=== PATIENT | male | born 1950 | race Caucasian/White ===

== ENCOUNTER → 2019-11-21 | Outpatient (CLI) | payer MEDICARE, OTHER ==
[2016-01-18 23:02] VITALS: BP 146/79
[~2019-11-21] MED LIST: ADVAIR 250/28 DISKU1 IH; BISOPROLOL FUMA1 TAB PO; SPIRIVA INH IH; ZOFRAN ODT4 MG PO
== END ==
LOC: RAD 08:59
DX: I65.22 Occlusion and stenosis of left carotid artery (principal)

== ENCOUNTER 2020-02-20 12:13 | Emergency (ER) | payer MEDICARE, OTHER ==
[~2020-02-20] VITALS: Ht 172.7 cm; Wt 74.2 kg
[2020-02-20 12:47] LABS: HEMATOCRIT 44.7 % (42.0-52.0); HEMOGLOBIN 14.6 g/dL (13.5-18.0); MEAN CELL VOLUME 88 fl (78-100); MEAN CORPUSCULAR HEMOGLOBIN 29 pg (27-31); MEAN CORPUSCULAR HGB CONC 33 g/dL (33-37); MEAN PLATELET VOLUME 12.5 fl (7.4-10.4); PLATELET COUNT 268 K/mm3 (130-400); RED BLOOD COUNT 5.09 M/mm3 (4.20-5.60); WHITE BLOOD COUNT 10.4 K/mm3 (4.8-10.8)
[2020-02-20 13:00] LABS: ALBUMIN 4.4 g/dL (3.4-4.8); POTASSIUM 3.6 mmol/L (3.5-5.1); SODIUM 137 mmol/L (136-145)
[2020-02-20 13:01] LABS: CALCIUM 9.3 mg/dL (8.3-10.5)
[2020-02-20 13:03] LABS: CARBON DIOXIDE 21 mmol/L (23-31); GLUCOSE 111 mg/dL (75-110); TOTAL PROTEIN 7.7 g/dL (6.2-8.1)
[2020-02-20 13:04] LABS: TOTAL BILIRUBIN 0.7 mg/dL (0.2-1.2)
[2020-02-20 13:07] LABS: AST-SGOT 24 U/L (5-34)
[2020-02-20 13:09] LABS: ALCOHOL IN-HOUSE < 10 mg/dL (<10)
[2020-02-20 13:10] LABS: ALT/SGPT 29 U/L (0-55)
[2020-02-20 13:23] LABS: LYMPHOCYTE 41 % (20-51); MONOCYTE 10 % (3-10); NEUTROPHILS 42 % (42-75)
[2020-02-20 13:35] LABS: TROPONIN-I < 0.03 ng/mL (<0.030)
[2020-02-20 14:14] LABS: D-DIMER 0.99 mg/L FEU (0.15-0.50)
[2020-02-20 14:25] LABS: PARTIAL THROMBOPLASTIN TIME 21.4 SECONDS (21.0-32.0)
[2020-02-20] MEDS ORDERED: CLOPIDOGREL75 M2 PO (15:56)
[2020-02-20] MEDS ORDERED: AMLODIPINE BESYL5 MG PO (15:57)
[2020-02-20] MEDS ORDERED: ATORVASTATIN CA80 MG PO (15:57)
[2020-02-20] MEDS ORDERED: CARVEDILOL3.125 MG PO (15:57)
[2020-02-20] MEDS ORDERED: TRELEGY ELLIPT1 EACH IH (15:57)
[2020-02-20] MEDS ORDERED: FLOMAX0.4 MG PO (15:57)
[2020-02-20] MEDS ORDERED: TOPCARE ASPIRIN81 M1 PO (15:58)
[2020-02-20 18:02] VITALS: BP 133/90
== END 2020-02-20 18:32 | disposition short-term general hospital (02) ==
LOC: ED 12:13
PROVIDERS: Nurse Practitioner Family
DX: I21.4 Non-ST elevation (NSTEMI) myocardial infarction (principal); I48.91 Unspecified atrial fibrillation; I12.9 Hypertensive chronic kidney disease with stage 1 through stage 4 chronic kidney disease, or unspecified chronic kidney disease; N18.9 Chronic kidney disease, unspecified; E78.5 Hyperlipidemia, unspecified; J44.9 Chronic obstructive pulmonary disease, unspecified; Z20.828 Contact with and (suspected) exposure to other viral communicable diseases; Z86.73 Personal history of transient ischemic attack (TIA), and cerebral infarction without residual deficits; Z87.891 Personal history of nicotine dependence; Z79.02 Long term (current) use of antithrombotics/antiplatelets; Z79.82 Long term (current) use of aspirin
CPT/HCPCS: J1650; J7030

== ENCOUNTER 2020-04-02 16:08 | Outpatient (RCR) | payer MEDICARE, OTHER ==
[~2020-04-02 16:08] MED LIST changes: +AMLODIPINE BESYL5 MG PO; +ASPIRIN E.C. 8181 MG PO; +ATORVASTATIN CA80 MG PO; +CARVEDILOL3.125 MG PO; +CLOPIDOGREL75 M2 PO; +FLOMAX0.4 MG PO; +TRELEGY ELLIPT1 EACH IH
== END 2020-07-01 | disposition home or self-care (01) ==
LOC: CARDREHAB
DX: Z48.812 Encounter for surgical aftercare following surgery on the circulatory system (principal); Z95.5 Presence of coronary angioplasty implant and graft; I25.2 Old myocardial infarction; Z87.891 Personal history of nicotine dependence

== ENCOUNTER → 2020-06-01 | Outpatient (CLI) | payer MEDICARE, OTHER | LOC: LAB 12:01 | DX: Z01.812 Encounter for preprocedural laboratory examination (principal); Z20.822 Contact with and (suspected) exposure to COVID-19 ==

== ENCOUNTER 2020-09-11 16:28 | Emergency (ER) | payer MEDICARE, OTHER ==
[2020-09-11 17:45] LABS: BASO # 0.09 (0.02-0.10); EOS # 0.97 (0.04-0.40); EOS % 12.3 % (0.0-4.0); HEMATOCRIT 40.4 % (42.0-52.0); HEMOGLOBIN 12.7 g/dL (13.5-18.0); LYMPH# 2.21 (1.50-4.00); MEAN CELL VOLUME 94 fl (78-100); MEAN CORPUSCULAR HEMOGLOBIN 30 pg (27-31); MEAN CORPUSCULAR HGB CONC 31 g/dL (33-37); MEAN PLATELET VOLUME 12.1 fl (7.4-10.4); MONO # 1.04 (0.20-0.80); NEU # 3.56 (1.40-6.50); PLATELET COUNT 230 K/mm3 (130-400); RED BLOOD COUNT 4.28 M/mm3 (4.20-5.60); RED CELL DISTRIBUTION WIDTH 14.2 % (11.5-14.5); WHITE BLOOD COUNT 7.9 K/mm3 (4.8-10.8)
[2020-09-11 17:58] LABS: ALBUMIN 4.1 g/dL (3.4-4.8); POTASSIUM 3.9 mmol/L (3.5-5.1)
[2020-09-11 18:00] LABS: CALCIUM 9.2 mg/dL (8.3-10.5)
[2020-09-11 18:01] LABS: TOTAL PROTEIN 7.6 g/dL (6.2-8.1)
[2020-09-11 18:03] LABS: TOTAL BILIRUBIN 0.7 mg/dL (0.2-1.2)
[2020-09-11 18:54] LABS: ERYTHROCYTE SEDIMENTATION RATE 14 mm/hr (0-20)
[2020-09-11 19:34] VITALS: BP 169/89
== END 2020-09-11 19:36 | disposition home or self-care (01) ==
LOC: ED 16:28
PROVIDERS: Family Medicine
DX: I25.10 Atherosclerotic heart disease of native coronary artery without angina pectoris (principal); I70.90 Unspecified atherosclerosis; I65.21 Occlusion and stenosis of right carotid artery; I73.9 Peripheral vascular disease, unspecified; H34.231 Retinal artery branch occlusion, right eye; I12.9 Hypertensive chronic kidney disease with stage 1 through stage 4 chronic kidney disease, or unspecified chronic kidney disease; N18.9 Chronic kidney disease, unspecified; J44.9 Chronic obstructive pulmonary disease, unspecified; I25.2 Old myocardial infarction; Z87.891 Personal history of nicotine dependence; Z79.02 Long term (current) use of antithrombotics/antiplatelets; Z79.82 Long term (current) use of aspirin; Z79.899 Other long term (current) drug therapy

== ENCOUNTER → 2024-05-22 | Outpatient (CLI) | payer MEDICARE, OTHER ==
[~2024-05-22] MED LIST changes: +CARVEDILOL6.25 MG PO; +LOSARTAN POTASS50 M1 PO; +ZYRTEC ALLERGY10 MG PO
[2024-05-22 11:47] LABS: ALBUMIN 3.7 g/dL (3.4-4.8)
[2024-05-22 11:49] LABS: CALCIUM 9.3 mg/dL (8.3-10.5)
== END ==
LOC: LAB 11:15
PROVIDERS: Internal Medicine Nephrology
DX: N18.4 Chronic kidney disease, stage 4 (severe) (principal)